=== PATIENT | male | born 1980 | race Caucasian/White ===

== ENCOUNTER 2024-07-09 18:50 | Emergency (ER) | payer OTHER, SELFPAY ==
[2024-07-09 18:57] VITALS: BP 159/94; PULSE 94; RESP 20; TEMP 37.8; O2SAT 96; BMI 23.6
--- NOTE | 2024-07-09 20:49 | PC.NURSE ---
Patient is energetic and cooperative. 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
--- NOTE | 2024-07-09 20:53 | ED.GENADULT ---
HPI - General Adult General Chief complaint: Toxicology Problem Stated complaint: Needs to be Medically Cleared Time Seen by Provider: 07/09/24 20:45 Source: patient and other Mode of arrival: Ambulatory History of Present Illness HPI narrative: 44yoM presents requesting that a medical clearance for be filled so that he can go to inpatient substance abuse rehab. Had been sober from amphetamines for 12.5 years but started using again 8 months ago. Reports PMH anxiety and mild HTN. Denies other substance use. Reports occasional alcohol and cigarette smoking. Last use meth 2 days ago. Patient History Social History Smoking Status: Current every day smoker Smoking Status: Current every day smoker Alcohol type: hard liquor Exam Initial Vital Signs Initial Vital Signs: Vital Signs Temperature 100.0 F H 07/09/24 18:57 Pulse Rate 94 H 07/09/24 18:57 Respiratory Rate 20 07/09/24 18:57 Blood Pressure 159/94 H 07/09/24 18:57 Pulse Oximetry 96 07/09/24 18:57 Oxygen Delivery Method Room Air 07/09/24 18:57 Const: Awake, alert, no acute distress, nontoxic appearing Cardiac: regular rate, regular rhythm RESP: unlabored, clear bilaterally, no wheezing GI: Soft, nontender, nondistended Skin: Warm, Dry, intact, no rashes Neuro: AO x3, CN II-XII grossly intact, moves all extremities Course Vital Signs Vital signs: Vital Signs - 8 hr 07/09/24 18:57 07/09/24 21:03 Temperature 100.0 F H Pulse Rate 94 H 87 Respiratory Rate 20 16 Blood Pressure 159/94 H 159/87 H Pulse Oximetry 96 97 Oxygen Delivery Method Room Air Room Air Medical Decision Making [facility] Narrative Medical decision making narrative: Patient presenting requesting that a medical clearance form be filled for inpatient substance use stay. Patient otherwise has no complaints. Form filled out and copy given to patient. Patient discharged and we will go to rehab via POV Discharge Plan Departure Patient Disposition: Home Clinical Impression: Amphetamine use disorder, moderate Instructions: DI for Substance Use Disorder Activity Restrictions/Additional Instructions: You are medically cleared to go to inpatient rehab. Stand Alone Forms: Patient Portal/API/Survey
[2024-07-09 21:03] VITALS: BP 159/87; PULSE 87; RESP 16; O2SAT 97
== END 2024-07-09 21:09 | disposition home or self-care (01) ==
PROVIDERS: Emergency Provider Emergency Medicine
DX: F15.90 Other stimulant use, unspecified, uncomplicated (principal)
CPT/HCPCS: 99281